=== PATIENT | female | born 2000 | race Two or more races ===

== ENCOUNTER 2021-09-15 00:57 | Emergency (ER) | payer BC ==
[~2021-09-15] VITALS: Ht 165.1 cm; Wt 52.2 kg
[2021-09-15] MEDS ORDERED: ESCITALOPRAM OX10 MG (01:11)
[2021-09-15] MEDS ORDERED: FLOVENT DISKU100 MCG (01:12)
[2021-09-15] MEDS ORDERED: PROAIR RESPICL90 MCG (01:12)
== END 2021-09-15 02:17 ==
LOC: ER 00:57
DX: S60.444A External constriction of right ring finger, initial encounter (principal); X58.XXXA Exposure to other specified factors, initial encounter; Y93.9 Activity, unspecified; Y92.9 Unspecified place or not applicable; Y99.9 Unspecified external cause status